=== PATIENT | female | born 1945 | race Caucasian/White ===

== ENCOUNTER → 2017-02-15 | Outpatient (CLI) | payer MEDICARE ==
[~2017-02-15] MED LIST: CLONAZEPAM1 MG PO; COREG3.125 MG PO; FLORASTOR250 MG PO; MOBIC7.5 MG PO; MULTIPLE VITAMI1 T25 PO; OMEPRAZOLE20 M2 PO; PRINIVIL10 MG PO; ULTRAM50 MG PO
== END | disposition home or self-care (01) ==
LOC: CARD 14:40
DX: Z51.11 Encounter for antineoplastic chemotherapy (principal)

== ENCOUNTER → 2017-06-07 | Outpatient (CLI) | payer MEDICARE | END | disposition home or self-care (01) | LOC: CARD 14:47 | DX: Z51.11 Encounter for antineoplastic chemotherapy (principal); I35.8 Other nonrheumatic aortic valve disorders ==

== ENCOUNTER 2017-07-01 13:58 | Emergency (ER) | payer MEDICARE ==
[~2017-07-01] VITALS: Ht 167.6 cm; Wt 65.3 kg
[2017-07-01 14:42] LABS: BASO # 0.1 10*3/uL (0.0-0.1); BASO % 1.1 % (0.0-1.0); EOS # 0.2 10*3/uL (0.0-0.4); EOS % 3.8 % (1.0-4.0); HEMATOCRIT 37.1 % (37.0-47.0); HEMOGLOBIN 12.6 g/dl (12.0-16.0); LYMPH # 1.8 10*3/uL (1.3-4.4); MEAN CELL VOLUME 92.3 fl (81.0-99.0); MEAN CORPUSCULAR HGB 31.3 pg (27.0-31.0); MONO # 0.3 10*3/uL (0.1-1.0); MONO % 5.7 % (3.0-9.0); NEUT # 3.1 10*3/uL (2.3-7.9); PLATELET COUNT AUTOMATED 164 10*3/uL (130-400); RED BLOOD COUNT 4.02 10*6/uL (4.10-5.10); RED CELL DISTRI WIDTH 15.7 % (0-14.5); WHITE BLOOD COUNT 5.6 10*3/uL (4.8-10.8)
[2017-07-01 14:56] LABS: INTERNATIONAL NORM RATIO 1.1 (2.0-3.5)
[2017-07-01 14:59] LABS: ALBUMIN 3.9 gm/dl (3.1-4.5); ALKALINE PHOSPHATASE 89 U/L (45-117); BUN 12 mg/dl (7-24); CHLORIDE 102 mmol/L (98-107); CREATININE 0.69 mg/dL (0.55-1.02); MAGNESIUM 1.6 mg/dL (1.5-2.1); SGOT/AST 43 IU/L (3-35); SGPT/ALT 35 U/L (12-78); SODIUM 133 mmol/L (136-145); TOTAL PROTEIN 8.3 gm/dL (6.4-8.2)
[2017-07-01 15:01] LABS: TROPONIN I < 0.015 ng/ml (<0.045)
== END 2017-07-01 16:01 | disposition home or self-care (01) ==
LOC: ED 13:58
PROVIDERS: Nurse Practitioner Family
DX: F41.9 Anxiety disorder, unspecified (principal); I10 Essential (primary) hypertension; Z79.899 Other long term (current) drug therapy; Z87.891 Personal history of nicotine dependence

== ENCOUNTER → 2017-07-04 | Outpatient (CLI) | payer MEDICARE ==
[~2017-07-04] MED LIST changes: +HYDROCHLOROTH12.5 M2 PO; +POTASSIUM CHLO20 ME3 PO
== END | disposition home or self-care (01) ==
LOC: US 10:00
DX: I10 Essential (primary) hypertension (principal); R94.5 Abnormal results of liver function studies

== ENCOUNTER 2017-07-06 16:03 | Inpatient (IN) | payer MEDICARE ==
[~2017-07-06] VITALS: Ht 168 cm; Wt 65.3 kg
--- NOTE | ~2017-07-06 | ST ---
[place], [place] EXERCISE STRESS TEST REPORT [id number] UNIT #: [id number] ROOM: 503 DOCTOR: ANTONIA CHAVEZ MD BIRTHDATE: [birth year] DOS: 07/07/2017 REFERRING PHYSICIAN: Dr. Lawler. INDICATION: Central chest pain. The patient underwent standard Zohaib protocol stress EKG. The patient's baseline EKG is normal sinus with nonspecific ST-T wave changes. Heart rate was 83 with a blood pressure of 124/70 at baseline. The patient achieved a maximum heart rate of 141 with a blood pressure 138/88. The patient achieved maximum heart rate of 141, which represents 95% of maximum predicted. The patient exercised for a total of 3 minutes on the treadmill. No chest pain, EKG changes were noted. No arrhythmias were noted. Knight Treadmill score ____ 3. SUMMARY OF FINDINGS: 1. No inducible ischemia. No chest pain was noted. 2. Knight Treadmill score of 3 due to low workload, portending an intermediate risk prognosis. 3. Please see separate dictation for perfusion scan results. ANTONIA CHAVEZ MD CM:STRESS:EXERCISE STRESS TEST REPORT 1141 0050 ANTONIA CHAVEZ MD
[~2017-07-06 16:03] MED LIST changes: -HYDROCHLOROTH12.5 M2 PO; -POTASSIUM CHLO20 ME3 PO
[2017-07-06 16:10] VITALS: BP 174/110
[2017-07-06 16:18] VITALS: BP 144/96
[2017-07-06 16:33] LABS: HEMATOCRIT 36.9 % (37.0-47.0); HEMOGLOBIN 12.7 g/dl (12.0-16.0); MEAN CELL VOLUME 92.3 fl (81.0-99.0); MEAN CORPUSCULAR HGB 31.8 pg (27.0-31.0); MEAN CORPUSCULAR HGB CONC 34.4 g/dl (33.0-37.0); MEAN PLATELET VOLUME 9.4 fl (9.6-12.3); PLATELET COUNT AUTOMATED 199 10*3/uL (130-400); RED CELL DISTRI WIDTH 15.6 % (0-14.5); WHITE BLOOD COUNT 7.4 10*3/uL (4.8-10.8)
[2017-07-06 16:44] LABS: ACT PARTIAL THROMBO TIME 25.9 SECONDS (20.8-31.5); INTERNATIONAL NORM RATIO 1.1 (2.0-3.5)
[2017-07-06 16:46] LABS: ALBUMIN 3.8 gm/dl (3.1-4.5); ALKALINE PHOSPHATASE 91 U/L (45-117); BUN 17 mg/dl (7-24); CHLORIDE 100 mmol/L (98-107); CREATININE 0.72 mg/dL (0.55-1.02); MAGNESIUM 1.7 mg/dL (1.5-2.1); POTASSIUM 3.8 mmol/L (3.5-5.1); SGOT/AST 39 IU/L (3-35); SGPT/ALT 31 U/L (12-78); SODIUM 131 mmol/L (136-145); TOTAL PROTEIN 8.6 gm/dL (6.4-8.2)
[2017-07-06 16:47] LABS: LIPASE 279 U/L (73-393); TROPONIN I < 0.015 ng/ml (<0.045)
[2017-07-06 16:57] LABS: ATYPICAL LYMPHS 2 % (0-0); BASOPHILS 1 % (0-1); PLATELET SUFFICIENCY NORMAL (NORMAL); TOTAL CELLS COUNTED 100 #CELLS
--- NOTE | 2017-07-06 17:02 | NUR ---
PT RESTING WITH HER AT THE BEDSIDE, STATES SHE IS FEELING BETTER, WAITING FOR LABS AND X-RAYS. PT REMAINS NSR IN THE 'S.
[2017-07-06] MEDS ORDERED: POTASSIUM CHLO20 ME3 PO (18:28)
--- NOTE | 2017-07-06 18:28 | NUR ---
[facility] 72, admitted to , under the services of LILIANA Donovan DO with a diagnosis of CHEST PAIN. Chief complaint is CHEST PAIN. Patient arrived via bed from ER. Monitor applied. Initial assessment completed. Vital signs taken and recorded. LILIANA DONOVAN DO notified of admission to the unit. Orders received. See assessment for past medical history, medications and allergies. Patient and/or family oriented to unit. [facility] visitation policy reviewed. Clothing/patient valuable form completed. PRANEETH GUERRA
[2017-07-06] MEDS ORDERED: HYDROCHLOROTH12.5 M2 PO (18:29)
[2017-07-06 18:30] VITALS: BP 129/88
--- NOTE | 2017-07-06 19:48 | NUR ---
CONSULTED DR. ESPINOZA AT THIS TIME. LEFT MESSAGE WITH ANSWERING SERVICE. AWAITING CALL BACK.
--- NOTE | 2017-07-06 19:50 | NUR ---
PT. AWAKE, ALERT AND ORIENTED X 3 AT THIS TIME. PT. LAYING IN BED. NO C/O SOB, CP, OR PAIN AT THIS TIME. CALL LIGHT WITHIN REACH, BED IN LOWEST POSITION, WHEELS LOCKED. SEE SHIFT ASSESSMENT.
--- NOTE | 2017-07-06 19:51 | NUR ---
DR. CHAVEZ, IN FOR DR. ESPINOZA, RETURNED MY CALL AT THIS TIME. INSTRUCTED THIS NURSE TO KEEP PT. NPO AFTER MIDNIGHT EXCEPT FOR MEDS.
[2017-07-06 20:00] VITALS: BP 146/88
--- NOTE | 2017-07-06 20:00 | NUR ---
SPOKE WITH DR. FLANNERY TO INFORM THAT [facility]REC WAS COMPLETED.
[2017-07-07] VITALS: BP 119/69
--- NOTE | 2017-07-07 00:49 | NUR ---
PT. STATED FEELINGS OF ANXIOUSNESS AND PAIN IN HER LEFT ARM 01/26. PT. ADM ANTOINE AND CHARISSA. WILL MONITOR FOR EFFECTIVENESS.
--- NOTE | 2017-07-07 01:25 | NUR ---
PT. SLEEPING AT THIS TIME WITHOUT DISTRESS, RESPIRATIONS EASY/NON-LABORED.
[2017-07-07 06:36] LABS: BASO # 0.1 10*3/uL (0.0-0.1); BASO % 1.1 % (0.0-1.0); EOS # 0.3 10*3/uL (0.0-0.4); EOS % 4.7 % (1.0-4.0); HEMATOCRIT 34.5 % (37.0-47.0); HEMOGLOBIN 11.9 g/dl (12.0-16.0); LYMPH # 2.2 10*3/uL (1.3-4.4); MEAN CELL VOLUME 92.2 fl (81.0-99.0); MEAN CORPUSCULAR HGB 31.8 pg (27.0-31.0); MEAN CORPUSCULAR HGB CONC 34.5 g/dl (33.0-37.0); MEAN PLATELET VOLUME 9.5 fl (9.6-12.3); MONO # 0.5 10*3/uL (0.1-1.0); MONO % 8.6 % (3.0-9.0); NEUT # 2.6 10*3/uL (2.3-7.9); NEUT % 46.2 % (47.0-73.0); PLATELET COUNT AUTOMATED 184 10*3/uL (130-400); RED BLOOD COUNT 3.74 10*6/uL (4.10-5.10); RED CELL DISTRI WIDTH 15.7 % (0-14.5); WHITE BLOOD COUNT 5.6 10*3/uL (4.8-10.8)
[2017-07-07 06:56] LABS: ALBUMIN 3.4 gm/dl (3.1-4.5); ALKALINE PHOSPHATASE 74 U/L (45-117); BUN 18 mg/dl (7-24); CHLORIDE 103 mmol/L (98-107); CHOLESTEROL 179 mg/dL (<200); CREATININE 0.63 mg/dL (0.55-1.02); HDL CHOLESTEROL 64 mg/dl (40-60); LDL CHOLESTEROL 99 mg/dL (9-159); MAGNESIUM 1.8 mg/dL (1.5-2.1); PHOSPHOROUS 3.3 mg/dL (2.5-4.9); POTASSIUM 3.8 mmol/L (3.5-5.1); SGOT/AST 37 IU/L (3-35); SGPT/ALT 27 U/L (12-78); SODIUM 135 mmol/L (136-145); TOTAL PROTEIN 7.5 gm/dL (6.4-8.2); TRIGLYCERIDES 81 mg/dl (<150); VLDL CHOLESTEROL 16 mg/dL (6-40)
[2017-07-07 07:03] LABS: VITAMIN D, 25-HYDROXY 31.1 ng/mL (30-100)
[2017-07-07 08:00] VITALS: BP 138/83
--- NOTE | 2017-07-07 08:30 | NUR ---
Inside Barrel Lathe Operator in to talk to patient. Patient states lives at HOME with HER . There are 7 steps in the home. Physician: ABIGAIL GREER [facility]acy: [facility] Home health services: NONE Patient's level of ADLs: INDEPENDENT Patient has working utilities: YES DME: NONE Follow-up physician's appointment after d/c: WILL BE MADE PRIOR TO DC Does patient want to access PORTAL?: Discharge plan HOME. DOMINIQUE BUSH
--- NOTE | 2017-07-07 09:55 | NUR ---
tylenol given for c/o headache. will monitor.
--- NOTE | 2017-07-07 11:00 | NUR ---
TYLENOL EFFECTIVE PER PT.
--- NOTE | 2017-07-07 11:30 | NUR ---
INFORMED CONSENT SIGNED FOR EXERCISE CARDIOLITE STRESS TEST WITH DR CHAVEZ. RESTING EKG NSR WITH A HR OF 83 AND BP OF 124/70. STANDING HR OF 96 AND BP OF 118/70. PT COMPLETED 3 MINUTES OF A KM PROTOCOL WITH COMPLETION OF STAGE I AT 1.7 MPH AND 10% GRADE. REACHED A PEAK HR OF 141 WHICH IS 95% OF PREDICTED MAX WITH A PEAK BP OF 138/88. TEST TERMINATED DUE TO FATIGUE. DENIES CHEST PAIN. EKG SHOWED AN ISOLATED PVC. EXERCISE TOLERANCE FAIR. LAST RECOVERY HR OF 112 WITH A BP OF 120/80. TAKEN TO NUCLEAR IMAGING IN STABLE CONDITION.
[2017-07-07 12:00] VITALS: BP 154/79
[2017-07-07 16:00] VITALS: BP 113/85
--- NOTE | 2017-07-07 18:44 | NUR ---
[facility] Discharge instructions reviewed with patient/family. Patient receptive and verbalizes understanding. Follow-up care arranged. Written instructions given to patient/family. PRANEETH GUERRA
== END 2017-07-07 18:44 | disposition home or self-care (01) | DRG 880 ==
LOC: ED 16:03 → 5E 17:39 → EDHOLD 17:39 → 5E 17:50
PROVIDERS: Emergency Medicine; Internal Medicine Nephrology; ADMIT Internal Medicine
PROC: 4A02XM4 Measurement of Cardiac Total Activity, External Approach (ICD-10-PCS; principal; 2017-07-07)
DX: F41.9 Anxiety disorder, unspecified (principal); D70.9 Neutropenia, unspecified; I34.0 Nonrheumatic mitral (valve) insufficiency; E87.1 Hypo-osmolality and hyponatremia; I10 Essential (primary) hypertension; R07.89 Other chest pain; K21.9 Gastro-esophageal reflux disease without esophagitis; R73.9 Hyperglycemia, unspecified; R00.0 Tachycardia, unspecified; Z79.899 Other long term (current) drug therapy; Z87.81 Personal history of (healed) traumatic fracture; Z87.11 Personal history of peptic ulcer disease; Z90.49 Acquired absence of other specified parts of digestive tract; Z90.11 Acquired absence of right breast and nipple; Z80.3 Family history of malignant neoplasm of breast; Z83.6 Family history of other diseases of the respiratory system; Z85.3 Personal history of malignant neoplasm of breast

== ENCOUNTER → 2017-07-18 | Outpatient (CLI) | payer MEDICARE ==
[~2017-07-18] MED LIST changes: +HYDROCHLOROTH12.5 M2 PO; +POTASSIUM CHLO20 ME3 PO
== END | disposition home or self-care (01) ==
LOC: RAD 09:12
DX: M54.2 Cervicalgia (principal); M47.022 Vertebral artery compression syndromes, cervical region

== ENCOUNTER → 2017-07-21 | Outpatient (CLI) | payer MEDICARE | LOC: CT 02:49 | DX: M47.892 Other spondylosis, cervical region (principal); M48.02 Spinal stenosis, cervical region; M54.12 Radiculopathy, cervical region; G45.2 Multiple and bilateral precerebral artery syndromes ==

== ENCOUNTER 2017-11-01 09:23 | Emergency (ER) | payer MEDICARE ==
[~2017-11-01] VITALS: Ht 172.7 cm; Wt 63.5 kg
[2017-11-01 09:45] LABS: BASO # 0.1 10*3/uL (0.0-0.1); BASO % 0.8 % (0.0-1.0); EOS # 0.2 10*3/uL (0.0-0.4); EOS % 3.5 % (1.0-4.0); HEMATOCRIT 35.2 % (37.0-47.0); HEMOGLOBIN 12.1 g/dl (12.0-16.0); LYMPH # 1.8 10*3/uL (1.3-4.4); LYMPH % 29.2 % (27.0-41.0); MEAN CELL VOLUME 91.9 fl (81.0-99.0); MEAN CORPUSCULAR HGB 31.6 pg (27.0-31.0); MEAN CORPUSCULAR HGB CONC 34.4 g/dl (33.0-37.0); MEAN PLATELET VOLUME 9.2 fl (9.6-12.3); MONO # 0.4 10*3/uL (0.1-1.0); MONO % 6.5 % (3.0-9.0); NEUT # 3.7 10*3/uL (2.3-7.9); NEUT % 59.5 % (47.0-73.0); PLATELET COUNT AUTOMATED 259 10*3/uL (130-400); RED BLOOD COUNT 3.83 10*6/uL (4.10-5.10); RED CELL DISTRI WIDTH 14.6 % (0-14.5); WHITE BLOOD COUNT 6.2 10*3/uL (4.8-10.8)
[2017-11-01 09:54] LABS: ACT PARTIAL THROMBO TIME 24.8 SECONDS (20.8-31.5); INTERNATIONAL NORM RATIO 1.1 (2.0-3.5)
[2017-11-01 10:01] LABS: ALBUMIN 3.7 gm/dl (3.1-4.5); ALKALINE PHOSPHATASE 67 U/L (45-117); BUN 14 mg/dl (7-24); CHLORIDE 108 mmol/L (98-107); CREATININE 0.87 mg/dL (0.55-1.02); POTASSIUM 3.4 mmol/L (3.5-5.1); SGOT/AST 35 IU/L (3-35); SGPT/ALT 32 U/L (12-78); SODIUM 140 mmol/L (136-145); TOTAL PROTEIN 7.6 gm/dL (6.4-8.2)
[2017-11-01 10:02] LABS: TROPONIN I < 0.015 ng/ml (<0.045)
[2017-11-01] MEDS ORDERED: PREDNISONE20 M1 PO (11:27)
[2017-11-01] MEDS ORDERED: ALBUTEROL2.5 MG/0.5 INH (11:27)
[2017-11-01] MEDS ORDERED: VIBRAMYCIN100 MG PO (11:27)
== END 2017-11-01 11:53 | disposition home or self-care (01) ==
LOC: ED 09:23
PROVIDERS: Emergency Medicine
DX: J40 Bronchitis, not specified as acute or chronic (principal); I10 Essential (primary) hypertension; F17.210 Nicotine dependence, cigarettes, uncomplicated; Z79.899 Other long term (current) drug therapy

== ENCOUNTER → 2018-05-23 | Outpatient (CLI) | payer MEDICARE ==
[~2018-05-23] MED LIST changes: +ALBUTEROL2.5 MG/0.5 INH; +PREDNISONE20 M1 PO; +VIBRAMYCIN100 MG PO
== END | disposition home or self-care (01) ==
LOC: CT 08:33
DX: C50.911 Malignant neoplasm of unspecified site of right female breast (principal); Z17.1 Estrogen receptor negative status [ER-]; Z85.3 Personal history of malignant neoplasm of breast

== ENCOUNTER → 2018-06-15 | Outpatient (CLI) | payer MEDICARE | END | disposition home or self-care (01) | LOC: CARD 13:38 | DX: C50.911 Malignant neoplasm of unspecified site of right female breast (principal); I10 Essential (primary) hypertension; Z17.1 Estrogen receptor negative status [ER-]; R06.00 Dyspnea, unspecified ==

== ENCOUNTER → 2019-01-23 | Outpatient (CLI) | payer MEDICARE ==
[~2019-01-23] MED LIST changes: +CIPRO500 MG PO; +FLAGYL500 MG PO
== END | disposition home or self-care (01) ==
LOC: US 09:57
DX: Z13.820 Encounter for screening for osteoporosis (principal); Z13.6 Encounter for screening for cardiovascular disorders; I10 Essential (primary) hypertension; E78.5 Hyperlipidemia, unspecified; Z78.0 Asymptomatic menopausal state

== ENCOUNTER 2019-03-24 14:08 | Emergency (ER) | payer MEDICARE ==
[~2019-03-24] VITALS: Ht 172.7 cm; Wt 70.8 kg
[~2019-03-24 14:08] MED LIST changes: -CIPRO500 MG PO; -FLAGYL500 MG PO
[2019-03-24 14:52] LABS: BASO # 0.1 10*3/uL (0.0-0.1); EOS # 0.3 10*3/uL (0.0-0.4); EOS % 3.7 % (1.0-4.0); HEMATOCRIT 40.6 % (37.0-47.0); HEMOGLOBIN 13.7 g/dl (12.0-16.0); LYMPH # 1.4 10*3/uL (1.3-4.4); LYMPH % 19.3 % (27.0-41.0); MEAN CELL VOLUME 95.1 fl (81.0-99.0); MEAN CORPUSCULAR HGB 32.1 pg (27.0-31.0); MEAN CORPUSCULAR HGB CONC 33.7 g/dl (33.0-37.0); MONO # 0.5 10*3/uL (0.1-1.0); MONO % 7.7 % (3.0-9.0); NEUT # 4.7 10*3/uL (2.3-7.9); NEUT % 67.9 % (47.0-73.0); PLATELET COUNT AUTOMATED 318 10*3/uL (130-400); RED BLOOD COUNT 4.27 10*6/uL (4.10-5.10); RED CELL DISTRI WIDTH 13.9 % (0-14.5)
[2019-03-24 15:05] LABS: ALBUMIN 3.8 gm/dl (3.1-4.5); ALKALINE PHOSPHATASE 77 U/L (45-117); BUN 13 mg/dl (7-24); CHLORIDE 101 mmol/L (98-107); CREATININE 0.74 mg/dL (0.55-1.02); LIPASE 91 U/L (73-393); POTASSIUM 4.2 mmol/L (3.5-5.1); SGOT/AST 21 IU/L (3-35); SGPT/ALT 20 U/L (12-78); SODIUM 135 mmol/L (136-145); TOTAL PROTEIN 7.9 gm/dL (6.4-8.2)
[2019-03-24 16:50] LABS: BILIRUBIN NEGATIVE (NEGATIVE); BLOOD NEGATIVE (NEGATIVE); CLARITY CLEAR (CLEAR); COLOR YELLOW (YELLOW); GLUCOSE NEGATIVE (NEGATIVE); KETONE NEGATIVE (NEGATIVE); LEUKO ESTERASE TRACE (NEGATIVE); NITRITE NEGATIVE (NEGATIVE); PH 5.5 (5.0-9.0); SPECIFIC GRAVITY 1.015 (1.005-1.030); UROBILINOGEN 0.2 E.U./dl (0.2-1.0)
[2019-03-24 16:55] LABS: RBC 0-2 rbc/hpf (0-2)
[2019-03-24 16:56] LABS: BACTERIA 1+
[2019-03-24] MEDS ORDERED: CIPRO500 MG PO (19:13)
[2019-03-24] MEDS ORDERED: FLAGYL500 MG PO (19:13)
== END 2019-03-24 19:26 | disposition home or self-care (01) ==
LOC: ED 14:08
PROVIDERS: Physician Assistant
DX: K57.32 Diverticulitis of large intestine without perforation or abscess without bleeding (principal); Z87.891 Personal history of nicotine dependence; Z79.899 Other long term (current) drug therapy; Z85.3 Personal history of malignant neoplasm of breast

== ENCOUNTER → 2019-05-14 | Outpatient (CLI) | payer MEDICARE ==
[~2019-05-14] MED LIST changes: +CIPRO500 MG PO; +FLAGYL500 MG PO
== END | disposition home or self-care (01) ==
LOC: CT 10:57
DX: J43.9 Emphysema, unspecified (principal); J84.9 Interstitial pulmonary disease, unspecified; I25.10 Atherosclerotic heart disease of native coronary artery without angina pectoris

== ENCOUNTER → 2019-05-16 | Outpatient (CLI) | payer MEDICARE ==
[2019-05-16 10:38] LABS: CREATININE 0.78 mg/dL (0.55-1.02)
== END | disposition home or self-care (01) ==
LOC: LAB 09:35
PROVIDERS: Surgery
DX: K57.92 Diverticulitis of intestine, part unspecified, without perforation or abscess without bleeding (principal)

== ENCOUNTER → 2019-05-17 | Outpatient (CLI) | payer MEDICARE | END | disposition home or self-care (01) | LOC: CT 00:55 | DX: K76.0 Fatty (change of) liver, not elsewhere classified (principal); K76.89 Other specified diseases of liver; K80.20 Calculus of gallbladder without cholecystitis without obstruction; Z90.710 Acquired absence of both cervix and uterus ==

== ENCOUNTER → 2019-05-22 | Day surgery (SDC) | payer MEDICARE ==
[~2019-05-22] VITALS: Ht 167.6 cm; Wt 72.1 kg
--- NOTE | ~2019-05-22 | PROC NOTE ---
[place], [place] PROCEDURE NOTE [facility] [id number] UNIT #: [id number] ROOM: DOCTOR: KOSTAS MORENO MD,SVITLANA BIRTHDATE: [birth year] DOS: 05/22/2019 PREOPERATIVE DIAGNOSIS: Chronic cough with tree-in-bud nodule in the right lower lobe. POSTOPERATIVE DIAGNOSES: Chronic cough with tree-in-bud nodule in the right lower lobe. PROCEDURE DESCRIPTION: Informed consent obtained from the patient. The patient brought to the OR and placed in supine position. Conscious sedation administered by the Anesthesia Department. After that bronchoscope advanced to laryngeal area. Epiglottis and vocal cords were seen. Vocal cords moving symmetrically with movements. Bronchoscope ____ tracheal lumen. Tracheal lumen noted small amount of secretions, which was suctioned out into kevin level. Right upper, right middle, right lower, left upper, lingular lower bronchi were all examined. Small amount of mucus secretion present in endobronchial subsegments bilaterally, which was suctioned out with normal saline wash. BAL specimen was also obtained for the patient of the right lower lobe. All the washings and the BAL specimen collected together, sent to the laboratory for all the cultures. Procedure well tolerated by the patient without complication. Postoperative findings will be discussed with the patient's family members. SVITLANA KENYON MD CM:PROCNOTE:PROCEDURE NOTE 191 SVITLANA MORENO MD
[2019-05-22 08:00] VITALS: BP 169/109
[2019-05-22 09:05] VITALS: BP 172/94
[2019-05-22 09:17] VITALS: BP 155/87
[2019-05-22 09:34] VITALS: BP 149/93
[2019-05-22 11:14] LABS: BF LYMPHOCYTES 6 %; BF MACROPHAGES 2 %; BF NEUTROPHILS 92 %
[2019-05-23 17:58] LABS: ACID FAST SPEC PROCESSING Concentration (.)
== END | disposition home or self-care (01) ==
LOC: SDC 05-18 14:45
PROVIDERS: Internal Medicine Critical Care Medicine
DX: R91.8 Other nonspecific abnormal finding of lung field (principal); I10 Essential (primary) hypertension; K57.90 Diverticulosis of intestine, part unspecified, without perforation or abscess without bleeding; F41.9 Anxiety disorder, unspecified; F32.9 Major depressive disorder, single episode, unspecified; R05 Cough; Z88.1 Allergy status to other antibiotic agents; Z79.84 Long term (current) use of oral hypoglycemic drugs; Z79.899 Other long term (current) drug therapy; Z98.890 Other specified postprocedural states; Z80.3 Family history of malignant neoplasm of breast; Z82.5 Family history of asthma and other chronic lower respiratory diseases; Z85.3 Personal history of malignant neoplasm of breast

== ENCOUNTER → 2019-06-14 | Outpatient (CLI) | payer MEDICARE ==
[~2019-06-14] MED LIST changes: +AMLODIPINE BESYL5 MG PO; +CARVEDILOL3.125 MG PO; +CRESTOR5 MG PO; +ETHAMBUTOL HCL400 MG PO; +LISINOPRIL20 MG PO; +LOMOTIL 2.5-0.1 EACH PO; +NORVASC10 MG PO; +RIFADIN300 MG PO; +ZITHROMAX500 MG PO
[2019-06-14 13:54] LABS: BASO # 0.1 10*3/uL (0.0-0.1); BASO % 1.6 % (0.0-1.0); EOS # 0.3 10*3/uL (0.0-0.4); EOS % 4.8 % (1.0-4.0); HEMOGLOBIN 13.1 g/dl (12.0-16.0); LYMPH # 1.2 10*3/uL (1.3-4.4); LYMPH % 21.9 % (27.0-41.0); MEAN CELL VOLUME 96.3 fl (81.0-99.0); MEAN CORPUSCULAR HGB 32.3 pg (27.0-31.0); MEAN CORPUSCULAR HGB CONC 33.6 g/dl (33.0-37.0); MEAN PLATELET VOLUME 8.8 fl (9.6-12.3); MONO # 0.5 10*3/uL (0.1-1.0); MONO % 8.4 % (3.0-9.0); NEUT # 3.5 10*3/uL (2.3-7.9); NEUT % 62.9 % (47.0-73.0); PLATELET COUNT AUTOMATED 312 10*3/uL (130-400); RED BLOOD COUNT 4.05 10*6/uL (4.10-5.10); WHITE BLOOD COUNT 5.6 10*3/uL (4.8-10.8)
[2019-06-14 14:13] LABS: ALBUMIN 3.7 gm/dl (3.1-4.5); ALKALINE PHOSPHATASE 101 U/L (45-117); BILIRUBIN, DIRECT < 0.1 mg/dL (0.0-0.2); SGOT/AST 42 IU/L (3-35); SGPT/ALT 45 U/L (12-78); TOTAL PROTEIN 7.6 gm/dL (6.4-8.2)
== END | disposition home or self-care (01) ==
LOC: LAB 13:36
PROVIDERS: Internal Medicine Critical Care Medicine
DX: Z79.899 Other long term (current) drug therapy (principal)

== ENCOUNTER 2019-06-23 13:34 | Emergency (ER) | payer MEDICARE ==
[~2019-06-23] VITALS: Ht 167.6 cm; Wt 72.6 kg
--- NOTE | ~2019-06-23 | EKG ---
[place], [place] ELECTROCARDIOGRAM REPORT NAME: KALA GONG UNIT #: [id number] ROOM: DOCTOR: EPIPHANY DRAFT REPORT BIRTHDATE: [birth year] [facility] Test Date: 2019-06-23 Test Time: 14:11:55 Pat Name: KALA GONG Department: Room: Gender: F Media Analyst: : 1945 Requested By: ROSE MARY MORALEZ Order Number: [id number] Reading MD: Eduardo Richardson MD Measurements Intervals [place] Rate: 107 P: 65 IN: 172 QRS: 45 QRSD: 83 T: 37 QT: 336 QTc: 449 Interpretive Statements Sinus tachycardia Electronically Signed On 06-25-2019 10:02:03 PDT by Eduardo Richardson MD CM:EKGRPT:ELECTROCARDIOGRAM REPORT 1411 1002 ROSE MARY MORALEZ EPIPHANY DRAFT REPORT ROSE MARY MORALEZ
[~2019-06-23 13:34] MED LIST changes: -AMLODIPINE BESYL5 MG PO; -CARVEDILOL3.125 MG PO; -CRESTOR5 MG PO; -ETHAMBUTOL HCL400 MG PO; -LISINOPRIL20 MG PO; -LOMOTIL 2.5-0.1 EACH PO; -NORVASC10 MG PO; -RIFADIN300 MG PO; -ZITHROMAX500 MG PO
[2019-06-23 14:16] LABS: BILIRUBIN NEGATIVE (NEGATIVE); BLOOD TRACE-INTACT (NEGATIVE); CLARITY CLEAR (CLEAR); COLOR YELLOW (YELLOW); GLUCOSE NEGATIVE (NEGATIVE); KETONE NEGATIVE (NEGATIVE); LEUKO ESTERASE NEGATIVE (NEGATIVE); NITRITE NEGATIVE (NEGATIVE); SPECIFIC GRAVITY <= 1.005 (1.005-1.030); UROBILINOGEN 0.2 E.U./dl (0.2-1.0)
[2019-06-23 14:23] LABS: BACTERIA TRACE; EPITHELIAL CELLS 0-2; RBC 0-2 rbc/hpf (0-2); WBC 0-2 wbc/hpf (0-5)
[2019-06-23 14:23] LABS: BASO # 0.1 10*3/uL (0.0-0.1); BASO % 1.3 % (0.0-1.0); EOS # 0.2 10*3/uL (0.0-0.4); EOS % 2.5 % (1.0-4.0); HEMATOCRIT 40.1 % (37.0-47.0); HEMOGLOBIN 13.5 g/dl (12.0-16.0); LYMPH # 1.2 10*3/uL (1.3-4.4); MEAN CELL VOLUME 94.6 fl (81.0-99.0); MEAN CORPUSCULAR HGB 31.8 pg (27.0-31.0); MEAN CORPUSCULAR HGB CONC 33.7 g/dl (33.0-37.0); MEAN PLATELET VOLUME 8.7 fl (9.6-12.3); MONO # 0.4 10*3/uL (0.1-1.0); MONO % 6.6 % (3.0-9.0); NEUT # 4.5 10*3/uL (2.3-7.9); NEUT % 70.1 % (47.0-73.0); PLATELET COUNT AUTOMATED 294 10*3/uL (130-400); RED BLOOD COUNT 4.24 10*6/uL (4.10-5.10); RED CELL DISTRI WIDTH 13.5 % (0-14.5); WHITE BLOOD COUNT 6.4 10*3/uL (4.8-10.8)
[2019-06-23 14:40] LABS: ALKALINE PHOSPHATASE 85 U/L (45-117); BUN 11 mg/dl (7-24); CHLORIDE 100 mmol/L (98-107); CREATININE 0.61 mg/dL (0.55-1.02); POTASSIUM 3.9 mmol/L (3.5-5.1); SGOT/AST 29 IU/L (3-35); SGPT/ALT 30 U/L (12-78); SODIUM 133 mmol/L (136-145); TOTAL PROTEIN 8.2 gm/dL (6.4-8.2)
[2019-06-23 14:43] LABS: TROPONIN I < 0.015 ng/ml (<0.045)
[2019-06-24] MEDS ORDERED: AMLODIPINE BESYL5 MG PO (09:41)
== END 2019-06-23 17:00 | disposition home or self-care (01) ==
LOC: ED 13:34
PROVIDERS: Nurse Practitioner
DX: I10 Essential (primary) hypertension (principal); Z88.1 Allergy status to other antibiotic agents; Z79.899 Other long term (current) drug therapy; Z90.49 Acquired absence of other specified parts of digestive tract; Z87.891 Personal history of nicotine dependence

== ENCOUNTER 2019-06-24 09:24 | Emergency (ER) | payer MEDICARE ==
[~2019-06-24] VITALS: Ht 167.6 cm; Wt 72.6 kg
[2019-06-24] MEDS ORDERED: AMLODIPINE BESYL5 MG PO (09:41)
== END 2019-06-24 10:52 | disposition home or self-care (01) ==
LOC: ED 09:24
DX: I10 Essential (primary) hypertension (principal); Z88.1 Allergy status to other antibiotic agents; Z79.899 Other long term (current) drug therapy; Z90.49 Acquired absence of other specified parts of digestive tract; Z87.891 Personal history of nicotine dependence

== ENCOUNTER → 2019-06-26 | Outpatient (CLI) | payer MEDICARE ==
[~2019-06-26] MED LIST changes: +AMLODIPINE BESYL5 MG PO; +CARVEDILOL3.125 MG PO; +CRESTOR5 MG PO; +ETHAMBUTOL HCL400 MG PO; +LISINOPRIL20 MG PO; +LOMOTIL 2.5-0.1 EACH PO; +NORVASC10 MG PO; +RIFADIN300 MG PO; +ZITHROMAX500 MG PO
== END | disposition home or self-care (01) ==
LOC: CARD 07:49
DX: I34.0 Nonrheumatic mitral (valve) insufficiency (principal); R00.0 Tachycardia, unspecified; I10 Essential (primary) hypertension; Z79.899 Other long term (current) drug therapy

== ENCOUNTER → 2019-07-12 | Outpatient (CLI) | payer MEDICARE ==
[2019-07-12 14:13] LABS: BASO # 0.1 10*3/uL (0.0-0.1); EOS # 0.4 10*3/uL (0.0-0.4); EOS % 6.3 % (1.0-4.0); HEMATOCRIT 40.9 % (37.0-47.0); HEMOGLOBIN 13.3 g/dl (12.0-16.0); LYMPH # 1.4 10*3/uL (1.3-4.4); LYMPH % 23.6 % (27.0-41.0); MEAN CELL VOLUME 94.9 fl (81.0-99.0); MEAN CORPUSCULAR HGB 30.9 pg (27.0-31.0); MEAN CORPUSCULAR HGB CONC 32.5 g/dl (33.0-37.0); MEAN PLATELET VOLUME 9.4 fl (9.6-12.3); MONO # 0.5 10*3/uL (0.1-1.0); MONO % 7.8 % (3.0-9.0); NEUT # 3.6 10*3/uL (2.3-7.9); NEUT % 61.1 % (47.0-73.0); PLATELET COUNT AUTOMATED 266 10*3/uL (130-400); RED BLOOD COUNT 4.31 10*6/uL (4.10-5.10); RED CELL DISTRI WIDTH 13.5 % (0-14.5); WHITE BLOOD COUNT 5.9 10*3/uL (4.8-10.8)
[2019-07-12 14:35] LABS: ALBUMIN 3.9 gm/dl (3.1-4.5); ALKALINE PHOSPHATASE 75 U/L (45-117); BILIRUBIN, DIRECT < 0.1 mg/dL (0.0-0.2); SGOT/AST 36 IU/L (3-35); SGPT/ALT 50 U/L (12-78)
== END | disposition home or self-care (01) ==
LOC: LAB 13:24
PROVIDERS: Internal Medicine Critical Care Medicine
DX: Z79.899 Other long term (current) drug therapy (principal)

== ENCOUNTER 2019-07-26 09:00 | Inpatient (IN) | payer MEDICARE ==
[~2019-07-26] VITALS: Ht 167.6 cm; Wt 68.7 kg
--- NOTE | ~2019-07-26 | EKG ---
[place], [place] ELECTROCARDIOGRAM REPORT NAME: KALA GONG UNIT #: [id number] ROOM: 403 DOCTOR: LEÓN DRAFT REPORT BIRTHDATE: [birth year] [facility] Test Date: 2019-07-26 Test Time: 11:48:04 Pat Name: KALA GONG Department: Room: 403 1 Gender: F Log Cut Off Sawyer: : 1945 Requested By: SUKI FLORES Order Number: [id number] Reading MD: Haroon Camilo MD Measurements Intervals [place] Rate: 100 P: -57 IA: 136 QRS: 44 QRSD: 88 T: 40 QT: 360 QTc: 465 Interpretive Statements Sinus or ectopic atrial tachycardia Compared to ECG 06/23/2019 14:11:55 Sinus tachycardia no longer present Electronically Signed On 07-30-2019 10:09:58 PST by Haroon Camilo MD CM:EKGRPT:ELECTROCARDIOGRAM REPORT 1148 1009 SUKI FLORES EPIPHANY DRAFT REPORT SUKI FLORES
--- NOTE | ~2019-07-26 | EKG ---
[place], [place] ELECTROCARDIOGRAM REPORT NAME: KALA GONG UNIT #: [id number] ROOM: 403 DOCTOR: LEÓN DRAFT REPORT BIRTHDATE: [birth year] [facility] Test Date: 2019-07-26 Test Time: 09:26:12 Pat Name: KALA GONG Department: Room: 403 Gender: F Cheese Cooker: : 1945 Requested By: SHAVON MCRAE Order Number: [id number] Reading MD: Haroon Camilo MD Measurements Intervals [place] Rate: 97 P: -60 PA: 185 QRS: 21 QRSD: 90 T: 34 QT: 357 QTc: 454 Interpretive Statements Sinus rhythm Compared to ECG 06/23/2019 14:11:55 sinus rhythm now present Sinus tachycardia no longer present Electronically Signed On 07-30-2019 10:09:47 PST by Haroon Camilo MD CM:EKGRPT:ELECTROCARDIOGRAM REPORT 1009 SHAVON TRAORE DRAFT REPORT SHAVON MCRAE MD
--- NOTE | ~2019-07-26 | CON ---
[place], [place] REPORT OF CONSULTATION NAME: KALA GONG [facility] #: [id number] UNIT #: [id number] ROOM: 403 DOCTOR: KOSTAS MORENO MDSVITLANA BIRTHDATE: [birth year] DOS: 07/27/2019 PULMONARY CONSULTATION, EVALUATION, AND MANAGEMENT CONSULTATION REQUESTED BY: Hospitalist services. REASON FOR CONSULTATION: For assessment of the respiratory disease. 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 The patient has been noted significant improvement in the respiratory status with marked improvement of coughing and shortness of breath. There was one major symptom before the treatment started. She had a bronchoscopy that confirmed the diagnosis. She has been admitted to the hospital, was not feeling well with mild cough. The patient stated that she has episodes of vomiting as well and complains of fever and chills at home prior to admission to the hospital. She denies symptoms of headache or diplopia. Denies symptoms of hemoptysis. Denies symptoms of acute shortness of breath at this time with significant cough this morning of assessment. REVIEW OF SYSTEMS: CONSTITUTIONAL: Fatigue and tiredness noted without any symptoms of fever or chills. EYES: Denies any burning, redness, or tenderness. GASTROINTESTINAL SYMPTOMS: Denies symptoms of dysphagia, nausea, vomiting, diarrhea, abdominal pain, hematemesis, melena, or hematochezia. SKIN: Denies abnormal lesions or rashes. CENTRAL NERVOUS SYSTEM: Denies diplopia or syncopal episodes. Remaining systems were reviewed. They were noted all negative. PAST MEDICAL HISTORY: 1. The patient was known with history of Mycobacterium avium complex pulmonary infection, treated currently with Zithromax, ethambutol and rifampin. 2. History of essential hypertension. 3. Moderate obesity. 4. History of right breast cancer treated with mastectomy and chemotherapy in 2017. 5. Gastroesophageal reflux. 6. Imza-yo-tekzkwyc obesity. 7. Hypercholesterolemia. SOCIAL HISTORY: The patient is , has 2 children, and lives at home. Denies any alcohol or illicit drug use. Tobacco use noted from age of [age] years old, half a pack of cigarettes per day, discontinued in 1984. PAST SURGICAL HISTORY: 1. Appendectomy. 2. Mastectomy in 2017 and then later on chemotherapy for the management of [place], [place] REPORT OF CONSULTATION [facility]: [id number] UNIT #: [id number] ROOM: 403 DOCTOR: KOSTAS MORENO MD,SVITLANA BIRTHDATE: [birth year] breast cancer. 3. Right hip replacement in 2014. 4. Fiberoptic bronchoscopy in 05/22/2019. FAMILY HISTORY: Father at age 65-year-old with complication of COPD. Mother at age 42 years of complications of breast cancer. CURRENT MEDICATIONS: Which were administered on this hospitalization were noted as use of Lipitor, ethambutol, rifampin 3 times a week, hydrochlorothiazide, Lovenox for DVT prophylaxis, amlodipine 10 mg daily, Zithromax 500 mg Tuesday, Tuesday, and Tuesday, omeprazole, Coreg, lisinopril, temazepam, potassium chloride, and some other meds. DRUG ALLERGIES: ALLERGIES TO AMOXICILLIN CAUSING DIARRHEA. PHYSICAL EXAMINATION: GENERAL: A 74-year-old white female currently noted to be awake, alert, without any distress. Height of 5 feet 6 inches, weight of 151 pounds, BMI 24. VITAL SIGNS: Normal temperature, respiratory rate 20-18, heart rate 92-100, blood pressure 160/90 - 154/98. Pulse oxygen saturation at rest on room air is 96% saturation. HEENT: Examination shows head was atraumatic. Eyes nonicterus. NECK: Supple. CARDIOVASCULAR: S1, S2 audible. LUNGS: Noted clear to auscultation bilaterally. ABDOMEN: Soft, nontender. Bowel sounds present. EXTREMITIES: No acute edema, clubbing or cyanosis. MUSCULOSKELETAL: Without acute deformities. CENTRAL NERVOUS SYSTEM: Intact. LABORATORY DATA: CBC on 07/26/2019 on admission, normal WBC count, hemoglobin and hematocrit and platelet count normal. Lactic acid noted 1.4 yesterday on admission. CMP on admission, normal BUN and creatinine. Glucose 182. Potassium noted severely decreased 2.7. Influenza A and B, nasal washing antigen negative. Rapid RSV virus testing was also noted as negative. CBC that was done this morning, normal WBC count, hemoglobin 11.7, platelet count normal. CMP at this point, normal BUN and creatinine. LFTs remains normal. Potassium 3.1 and sodium 134. IMPRESSION: Hypokalemia resulting in weakness and fatigue, currently treated for Mycobacterium avium complex infection noted stable and favorable improvement continue. The chest x-ray that was done on admission noted without any pulmonary nodules or other opacities. Other medical problems noted in the history. PLAN OF TREATMENT: Continue the patient's antibiotic 3 times a week, supplement the potassium most likely related to hydrochlorothiazide use. Consider discontinuing hydrochlorothiazide and replace it with different diuretics. Other therapy, plan of management additional treatment changes will be recommended or change based on progression of the illness. Discharge planning [place], [place] REPORT OF CONSULTATION NAME: KALA GONG UNIT #: [id number] ROOM: 403 DOCTOR: KOSTAS MORENO MD,SVITLANA BIRTHDATE: [birth year] could be started based on the primary care physician assessment. She will be followed up in physician office as previously scheduled for pulmonary disease. SVITLANA KENYON MD CM:CONSTR:REPORT OF CONSULTATION 1407 07/27/19 1913 interface
[~2019-07-26 09:00] MED LIST changes: -CARVEDILOL3.125 MG PO; -CRESTOR5 MG PO; -ETHAMBUTOL HCL400 MG PO; -LISINOPRIL20 MG PO; -LOMOTIL 2.5-0.1 EACH PO; -NORVASC10 MG PO; -RIFADIN300 MG PO; -ZITHROMAX500 MG PO
[2019-07-26 09:03] VITALS: BP 147/85
[2019-07-26 09:30] LABS: BASO % 0.5 % (0.0-1.0); EOS # 0.1 10*3/uL (0.0-0.4); EOS % 2.6 % (1.0-4.0); HEMATOCRIT 36.6 % (37.0-47.0); HEMOGLOBIN 12.4 g/dl (12.0-16.0); LYMPH # 0.6 10*3/uL (1.3-4.4); LYMPH % 11.7 % (27.0-41.0); MEAN CELL VOLUME 90.4 fl (81.0-99.0); MEAN CORPUSCULAR HGB 30.6 pg (27.0-31.0); MEAN CORPUSCULAR HGB CONC 33.9 g/dl (33.0-37.0); MEAN PLATELET VOLUME 9.3 fl (9.6-12.3); MONO # 0.2 10*3/uL (0.1-1.0); NEUT # 4.4 10*3/uL (2.3-7.9); NEUT % 80.8 % (47.0-73.0); PLATELET COUNT AUTOMATED 294 10*3/uL (130-400); RED BLOOD COUNT 4.05 10*6/uL (4.10-5.10); RED CELL DISTRI WIDTH 13.4 % (0-14.5); WHITE BLOOD COUNT 5.5 10*3/uL (4.8-10.8)
[2019-07-26 09:46] LABS: ALBUMIN 2.9 gm/dl (3.1-4.5); ALKALINE PHOSPHATASE 197 U/L (45-117); BUN 7 mg/dl (7-24); CHLORIDE 98 mmol/L (98-107); CREATININE 0.74 mg/dL (0.55-1.02); POTASSIUM 2.7 mmol/L (3.5-5.1); SGOT/AST 35 IU/L (3-35); SGPT/ALT 53 U/L (12-78); SODIUM 133 mmol/L (136-145); TOTAL PROTEIN 7.7 gm/dL (6.4-8.2)
[2019-07-26 09:47] LABS: TROPONIN I < 0.015 ng/ml (<0.045)
[2019-07-26 10:38] VITALS: BP 167/99
--- NOTE | 2019-07-26 10:38 | NUR ---
PT REQUESTING SOMETHING FOR HEADACHE DR MCRAE NOTIFIED
--- NOTE | 2019-07-26 11:20 | NUR ---
A 74, admitted to , under the services of MICHELLE Dailey DO with a diagnosis of hyponatremia hypkalemia,. Chief complaint is sob and cough for the past 3-4 days. Patient arrived via stretcher from ER. Monitor applied. Initial assessment completed. Vital signs taken and recorded. See assessment for past medical history, medications and allergies. Patient and/or family oriented to unit. [facility]. ANJEL BURDICK
--- NOTE | 2019-07-26 11:25 | NUR ---
Called lab regarding if they need two samples for rapid flu and rsv testing or could just one be sent in the same tube. Lab states that they need two as they are in different collection containers. States RSV is in a purple capped collection container.
[2019-07-26] MEDS ORDERED: NORVASC10 MG PO (11:31)
[2019-07-26] MEDS ORDERED: CARVEDILOL3.125 MG PO (11:32)
[2019-07-26] MEDS ORDERED: CRESTOR5 MG PO (11:34)
[2019-07-26] MEDS ORDERED: ZITHROMAX500 MG PO (11:35)
[2019-07-26] MEDS ORDERED: RIFADIN300 MG PO (11:36)
[2019-07-26] MEDS ORDERED: ETHAMBUTOL HCL400 MG PO (11:37)
[2019-07-26 12:00] VITALS: BP 164/88
--- NOTE | 2019-07-26 12:00 | NUR ---
RSV and Rapid flu obtained and sent to lab.
--- NOTE | 2019-07-26 15:12 | NUR ---
DR. Kelley notified that med rec is updated.
--- NOTE | 2019-07-26 15:39 | NUR ---
Dr. Fischer notified of consult. States he will see pt in am.
[2019-07-26 16:00] VITALS: BP 140/104
--- NOTE | 2019-07-26 17:09 | NUR ---
BP was 144/102. Notified Dr. Kelley. States to recheck in a couple hours.
[2019-07-26 18:21] LABS: BILIRUBIN NEGATIVE (NEGATIVE); BLOOD TRACE-INTACT (NEGATIVE); CLARITY CLEAR (CLEAR); COLOR YELLOW (YELLOW); GLUCOSE NEGATIVE (NEGATIVE); KETONE NEGATIVE (NEGATIVE); LEUKO ESTERASE NEGATIVE (NEGATIVE); NITRITE NEGATIVE (NEGATIVE); SPECIFIC GRAVITY 1.015 (1.005-1.030); UROBILINOGEN 0.2 E.U./dl (0.2-1.0)
[2019-07-26 18:38] LABS: RBC 0-2 rbc/hpf (0-2)
[2019-07-26 20:00] VITALS: BP 160/98
--- NOTE | 2019-07-26 20:00 | NUR ---
24 HOUR CHART CHECK COMPLETE.
--- NOTE | 2019-07-26 20:03 | NUR ---
PRN NORCO ADMINISTERED AT THIS TIME FOR PT C/O H/A RATED A 5/10 ON THE PAIN SCALE. WILL CONTINUE TO MONITOR AND REASSESS. BP 160/98 WILL NOTIFY
--- NOTE | 2019-07-26 20:19 | NUR ---
DR GUALLPA NOTIFIED OF BP OF 160/98 AND PT C/O HEADACHE. STATES TO RECHECK IN A HOUR AND NOTIFY HER OF THE RESULT. NO NEW ORDERS AT THIS TIME.
[2019-07-26 21:30] VITALS: BP 146/94
--- NOTE | 2019-07-26 21:40 | NUR ---
SPOKE WITH DR GUALLPA REGARDING PT RECHECK BP OF 146/94. DR AWARE THAT PT STATES THAT HER "HEADACHE FINALLY DISAPPEARED AND SHE IS FEELING MUCH BETTER". NO NEW ORDERS. WILL CONTINUE TO MONITOR.
[2019-07-27] VITALS: BP 163/95
[2019-07-27 03:51] VITALS: BP 154/98
--- NOTE | 2019-07-27 03:53 | NUR ---
PRN NORCO ADMINISTERED AT THIS TIME FOR PT C/O HEADACHE RATED AN 8/10. THE PTS BLOOD PRESSURE IS 154/98. DENIES CHEST PAIN OR BLURRY VISION. WILL CONTINUE TO MONITOR AND REASSESS. NO OTHER COMPLAINTS AT THIS TIME. CALL LIGHT IN REACH.
[2019-07-27 06:31] LABS: BASO % 0.8 % (0.0-1.0); EOS # 0.3 10*3/uL (0.0-0.4); EOS % 6.1 % (1.0-4.0); HEMATOCRIT 34.3 % (37.0-47.0); HEMOGLOBIN 11.7 g/dl (12.0-16.0); LYMPH # 0.8 10*3/uL (1.3-4.4); LYMPH % 16.6 % (27.0-41.0); MEAN CORPUSCULAR HGB 30.7 pg (27.0-31.0); MEAN CORPUSCULAR HGB CONC 34.1 g/dl (33.0-37.0); MEAN PLATELET VOLUME 9.2 fl (9.6-12.3); MONO # 0.5 10*3/uL (0.1-1.0); MONO % 9.7 % (3.0-9.0); NEUT # 3.3 10*3/uL (2.3-7.9); NEUT % 66.4 % (47.0-73.0); PLATELET COUNT AUTOMATED 319 10*3/uL (130-400); RED BLOOD COUNT 3.81 10*6/uL (4.10-5.10); RED CELL DISTRI WIDTH 13.7 % (0-14.5)
[2019-07-27 06:44] LABS: ALBUMIN 2.6 gm/dl (3.1-4.5); ALKALINE PHOSPHATASE 174 U/L (45-117); BUN 10 mg/dl (7-24); CHLORIDE 103 mmol/L (98-107); CHOLESTEROL 159 mg/dL (<200); CREATININE 0.54 mg/dL (0.55-1.02); FREE T4 1.14 ng/dl (0.76-1.46); HDL CHOLESTEROL 22 mg/dl (40-60); LDL CHOLESTEROL 111 mg/dL (9-159); PHOSPHOROUS 2.6 mg/dL (2.5-4.9); POTASSIUM 3.1 mmol/L (3.5-5.1); SGOT/AST 42 IU/L (3-35); SGPT/ALT 49 U/L (12-78); SODIUM 134 mmol/L (136-145); TOTAL PROTEIN 7.1 gm/dL (6.4-8.2); TRIGLYCERIDES 129 mg/dl (<150); VLDL CHOLESTEROL 26 mg/dL (6-40)
--- NOTE | 2019-07-27 07:04 | NUR ---
DR DONATO NOTIFIED OF POTASSIUM 3.1. NO NEW ORDERS AT THIS TIME.
--- NOTE | 2019-07-27 07:33 | NUR ---
Shift chart check completed.
[2019-07-27 08:00] VITALS: BP 160/100
--- NOTE | 2019-07-27 08:25 | NUR ---
PT COMPLAIN OF HEADACHE, NORCO GIVEN. PT UNDERSTANDS AM MEDICTIONS. UNDERSTANDS POTASSIUM REPLACEMENT. NO QUESTIONS AT THIS TIME. WILL MONITOR FOR NORCO EFFECTIVENESS
[2019-07-27 08:28] LABS: VITAMIN D, 25-HYDROXY 11.9 ng/mL (30-100)
--- NOTE | 2019-07-27 09:07 | NUR ---
zofran effective for nausea, headache "better"
[2019-07-27 10:30] VITALS: BP 160/92
--- NOTE | 2019-07-27 11:34 | NUR ---
PT CONTINUES TO COMPLAIN OF HEADACHE, RIGHT SIDE OF FOREHEAD. NORCO GIVEN
--- NOTE | 2019-07-27 11:53 | NUR ---
Prehemmer in to talk to patient. Patient states lives at home with . There are few steps in the home. Physician: felipe jaramillo Pharmacy: [facility] health services: none Patient's level of ADLs: INDEPENDENT Patient has working utilities: all working DME: none Follow-up physician's appointment after d/c: will be made by hospitalist nurse director upon discharge Does patient want to access PORTAL?: no Discharge plan discussed with patient, present, she states she lives at home with , is independent in adls and ambulation, she states she will return home when able and denies any home needs, was in agreement. ANDRZEJ WILLIAM
--- NOTE | 2019-07-27 12:55 | NUR ---
Discharge instructions reviewed with patient/family. Patient receptive and verbalizes understanding. Follow-up care understood. Written instructions given to patient/family. iv removed left arm, dressing applied. pt declined wheelchair for dishcharge, with patient. pt has no questions on discharge instructions ERIKA CHAUDHRY
[2019-07-27] MEDS ORDERED: LISINOPRIL20 MG PO (16:00)
[2019-07-27] MEDS ORDERED: LOMOTIL 2.5-0.1 EACH PO (16:02)
== END 2019-07-27 12:55 | disposition home or self-care (01) | DRG 868 ==
LOC: ED 09:00 → 4E 10:32 → EDHOLD 10:32 → 4E 11:13
PROVIDERS: Emergency Medicine; Internal Medicine; ADMIT Internal Medicine
DX: A31.9 Mycobacterial infection, unspecified (principal); E44.0 Moderate protein-calorie malnutrition; E87.1 Hypo-osmolality and hyponatremia; E87.6 Hypokalemia; R00.0 Tachycardia, unspecified; F41.9 Anxiety disorder, unspecified; I10 Essential (primary) hypertension; K21.9 Gastro-esophageal reflux disease without esophagitis; Z85.3 Personal history of malignant neoplasm of breast; Z87.81 Personal history of (healed) traumatic fracture; Z88.1 Allergy status to other antibiotic agents; Z90.49 Acquired absence of other specified parts of digestive tract; Z83.6 Family history of other diseases of the respiratory system; Z79.899 Other long term (current) drug therapy; Z68.25 Body mass index [BMI] 25.0-25.9, adult

== ENCOUNTER → 2019-07-31 | Outpatient (CLI) | payer MEDICARE ==
[~2019-07-31] MED LIST changes: +CARVEDILOL3.125 MG PO; +CRESTOR5 MG PO; +ETHAMBUTOL HCL400 MG PO; +LISINOPRIL20 MG PO; +LOMOTIL 2.5-0.1 EACH PO; +NORVASC10 MG PO; +RIFADIN300 MG PO; +ZITHROMAX500 MG PO
[2019-07-31 10:22] LABS: BUN 15 mg/dl (7-24); CHLORIDE 97 mmol/L (98-107); POTASSIUM 3.8 mmol/L (3.5-5.1); SODIUM 131 mmol/L (136-145)
[2019-07-31 10:23] LABS: CREATININE 0.78 mg/dL (0.55-1.02)
== END | disposition home or self-care (01) ==
LOC: LAB 08:44
PROVIDERS: Internal Medicine
DX: E87.6 Hypokalemia (principal)

== ENCOUNTER → 2019-08-02 | Day surgery (SDC) | payer MEDICARE ==
[~2019-08-02] VITALS: Ht 167.6 cm; Wt 72.6 kg
--- NOTE | ~2019-08-02 | PROC NOTE ---
[place], [place] PROCEDURE NOTE NAME: KALA GONG UNIT #: [id number] ROOM: DOCTOR: JEAN BECKMAN MD BIRTHDATE: [birth year] DOS: 08/02/2019 PREOPERATIVE DIAGNOSIS: History of diverticulitis. POSTOPERATIVE DIAGNOSES: Diverticulosis, internal and external hemorrhoids. PROCEDURE: Flexible sigmoidoscopy. ENDOSCOPIST: Jean Beckman MD AUDIO VISUAL ARTS DIRECTOR: STUART. ANESTHESIA: MAC. INDICATIONS: This is a 74-year-old lady with a recent admission to the hospital with diverticulitis, who is here for a colonoscopy. The procedure and its complications were explained to the patient in detail preoperatively. Complications that were discussed included but were not limited to, bleeding, colon perforation, missed lesions, and prolonged pain. She agreed to proceed. DESCRIPTION OF PROCEDURE: After identifying the patient, the patient was brought to the endoscopy suite and placed in the left lateral position. After time-out procedure was called, IV sedation was administered by the anesthesia team. A digital rectal exam was performed, which was within normal limits and there was external hemorrhoids that could be visualized, but there was no blood on the examining finger. An adult colonoscope was now introduced into the anal canal and advanced sequentially into the rectum and sigmoid colon up to approximately 30 cm from the anal verge. Despite multiple attempts, the scope could not be passed beyond this point and this also was not possible after making the patient supine. There was diverticulosis that was seen and some edema in the mucosa and therefore in order to prevent any complications, the scope was withdrawn. During the process of withdrawal, internal hemorrhoids which were noncomplicated were also visualized in addition to the external hemorrhoids. The scope was withdrawn and the patient was brought back to the recovery room in stable fashion. The patient was then sent downstairs to Radiology for a completion barium enema. These findings were discussed with the patient's in the recovery room. [place], [place] PROCEDURE NOTE NAME: KALA GONG UNIT #: [id number] ROOM: DOCTOR: JEAN BECKMAN MD BIRTHDATE: [birth year] Jean Beckman MD CM:PROCNOTE:PROCEDURE NOTE 0836 1017 JEAN BECKMAN MD
[2019-08-02 07:23] VITALS: BP 155/98
[2019-08-02 08:13] VITALS: BP 133/91
[2019-08-02 08:28] VITALS: BP 152/88
[2019-08-02 08:43] VITALS: BP 130/88
== END | disposition home or self-care (01) ==
LOC: SDC 07-30 13:15
DX: Z12.11 Encounter for screening for malignant neoplasm of colon (principal); K57.30 Diverticulosis of large intestine without perforation or abscess without bleeding; K64.4 Residual hemorrhoidal skin tags; K64.8 Other hemorrhoids; I10 Essential (primary) hypertension; Z98.890 Other specified postprocedural states; Z88.8 Allergy status to other drugs, medicaments and biological substances; Z79.899 Other long term (current) drug therapy; Z79.84 Long term (current) use of oral hypoglycemic drugs; Z85.3 Personal history of malignant neoplasm of breast
CPT/HCPCS: 01922; G0104

== ENCOUNTER → 2019-08-09 | Outpatient (CLI) | payer MEDICARE ==
[2019-08-09 12:32] LABS: ALBUMIN 3.4 gm/dl (3.1-4.5); ALKALINE PHOSPHATASE 87 U/L (45-117); BILIRUBIN, DIRECT < 0.1 mg/dL (0.0-0.2); SGOT/AST 17 IU/L (3-35); SGPT/ALT 20 U/L (12-78); TOTAL PROTEIN 7.5 gm/dL (6.4-8.2)
[2019-08-09 12:36] LABS: BASO # 0.1 10*3/uL (0.0-0.1); BASO % 2.2 % (0.0-1.0); EOS # 0.2 10*3/uL (0.0-0.4); EOS % 4.6 % (1.0-4.0); HEMATOCRIT 36.1 % (37.0-47.0); HEMOGLOBIN 11.8 g/dl (12.0-16.0); LYMPH # 1.1 10*3/uL (1.3-4.4); LYMPH % 21.5 % (27.0-41.0); MEAN CORPUSCULAR HGB 31.1 pg (27.0-31.0); MEAN CORPUSCULAR HGB CONC 32.7 g/dl (33.0-37.0); MEAN PLATELET VOLUME 8.8 fl (9.6-12.3); MONO # 0.4 10*3/uL (0.1-1.0); MONO % 8.9 % (3.0-9.0); NEUT # 3.1 10*3/uL (2.3-7.9); NEUT % 62.4 % (47.0-73.0); PLATELET COUNT AUTOMATED 394 10*3/uL (130-400); RED CELL DISTRI WIDTH 14.6 % (0-14.5)
== END | disposition home or self-care (01) ==
LOC: LAB 11:40
PROVIDERS: Internal Medicine Critical Care Medicine
DX: Z79.899 Other long term (current) drug therapy (principal)

== ENCOUNTER → 2019-09-06 | Outpatient (CLI) | payer MEDICARE ==
[2019-09-06 12:31] LABS: BASO # 0.1 10*3/uL (0.0-0.1); BASO % 1.4 % (0.0-1.0); EOS # 0.3 10*3/uL (0.0-0.4); EOS % 6.3 % (1.0-4.0); HEMATOCRIT 37.7 % (37.0-47.0); HEMOGLOBIN 12.6 g/dl (12.0-16.0); LYMPH # 1.2 10*3/uL (1.3-4.4); LYMPH % 27.2 % (27.0-41.0); MEAN CELL VOLUME 95.4 fl (81.0-99.0); MEAN CORPUSCULAR HGB 31.9 pg (27.0-31.0); MEAN CORPUSCULAR HGB CONC 33.4 g/dl (33.0-37.0); MEAN PLATELET VOLUME 8.7 fl (9.6-12.3); MONO # 0.4 10*3/uL (0.1-1.0); MONO % 8.6 % (3.0-9.0); NEUT # 2.4 10*3/uL (2.3-7.9); PLATELET COUNT AUTOMATED 225 10*3/uL (130-400); RED BLOOD COUNT 3.95 10*6/uL (4.10-5.10); RED CELL DISTRI WIDTH 14.3 % (0-14.5); WHITE BLOOD COUNT 4.3 10*3/uL (4.8-10.8)
[2019-09-06 12:59] LABS: ALBUMIN 3.7 gm/dl (3.1-4.5); ALKALINE PHOSPHATASE 74 U/L (45-117); BILIRUBIN, DIRECT < 0.1 mg/dL (0.0-0.2); SGOT/AST 18 IU/L (3-35); SGPT/ALT 18 U/L (12-78); TOTAL PROTEIN 7.7 gm/dL (6.4-8.2)
== END | disposition home or self-care (01) ==
LOC: LAB 12:12
PROVIDERS: Internal Medicine Critical Care Medicine
DX: Z79.899 Other long term (current) drug therapy (principal)

== ENCOUNTER → 2019-10-04 | Outpatient (CLI) | payer MEDICARE ==
[2019-10-04 10:56] LABS: BASO # 0.1 10*3/uL (0.0-0.1); BASO % 1.4 % (0.0-1.0); EOS # 0.2 10*3/uL (0.0-0.4); EOS % 3.4 % (1.0-4.0); HEMATOCRIT 39.2 % (37.0-47.0); HEMOGLOBIN 12.9 g/dl (12.0-16.0); LYMPH # 1.6 10*3/uL (1.3-4.4); LYMPH % 31.1 % (27.0-41.0); MEAN CELL VOLUME 95.6 fl (81.0-99.0); MEAN CORPUSCULAR HGB 31.5 pg (27.0-31.0); MEAN CORPUSCULAR HGB CONC 32.9 g/dl (33.0-37.0); MEAN PLATELET VOLUME 8.6 fl (9.6-12.3); MONO # 0.5 10*3/uL (0.1-1.0); MONO % 9.6 % (3.0-9.0); NEUT # 2.7 10*3/uL (2.3-7.9); NEUT % 54.1 % (47.0-73.0); PLATELET COUNT AUTOMATED 229 10*3/uL (130-400); RED CELL DISTRI WIDTH 14.2 % (0-14.5)
[2019-10-04 11:27] LABS: ALBUMIN 3.9 gm/dl (3.1-4.5); ALKALINE PHOSPHATASE 72 U/L (45-117); BILIRUBIN, DIRECT < 0.1 mg/dL (0.0-0.2); SGOT/AST 13 IU/L (3-35); SGPT/ALT 17 U/L (12-78); TOTAL PROTEIN 7.5 gm/dL (6.4-8.2)
== END | disposition home or self-care (01) ==
LOC: LAB 10:42
PROVIDERS: Internal Medicine Critical Care Medicine
DX: Z79.899 Other long term (current) drug therapy (principal)

== ENCOUNTER → 2019-11-01 | Outpatient (CLI) | payer MEDICARE ==
[2019-11-01 16:03] LABS: BASO # 0.1 10*3/uL (0.0-0.1); BASO % 1.2 % (0.0-1.0); EOS # 0.2 10*3/uL (0.0-0.4); EOS % 3.8 % (1.0-4.0); HEMATOCRIT 41.7 % (37.0-47.0); HEMOGLOBIN 13.9 g/dl (12.0-16.0); LYMPH # 1.7 10*3/uL (1.3-4.4); LYMPH % 27.4 % (27.0-41.0); MEAN CELL VOLUME 94.1 fl (81.0-99.0); MEAN CORPUSCULAR HGB 31.4 pg (27.0-31.0); MEAN CORPUSCULAR HGB CONC 33.3 g/dl (33.0-37.0); MEAN PLATELET VOLUME 8.8 fl (9.6-12.3); MONO # 0.5 10*3/uL (0.1-1.0); MONO % 7.5 % (3.0-9.0); NEUT # 3.6 10*3/uL (2.3-7.9); NEUT % 59.8 % (47.0-73.0); PLATELET COUNT AUTOMATED 266 10*3/uL (130-400); RED BLOOD COUNT 4.43 10*6/uL (4.10-5.10); RED CELL DISTRI WIDTH 13.5 % (0-14.5)
[2019-11-01 16:15] LABS: ALBUMIN 4.1 gm/dl (3.1-4.5); ALKALINE PHOSPHATASE 80 U/L (45-117); BILIRUBIN, DIRECT < 0.1 mg/dL (0.0-0.2); SGOT/AST 16 IU/L (3-35); SGPT/ALT 17 U/L (12-78); TOTAL PROTEIN 8.2 gm/dL (6.4-8.2)
== END | disposition home or self-care (01) ==
LOC: LAB 15:18
PROVIDERS: Internal Medicine Critical Care Medicine
DX: Z51.81 Encounter for therapeutic drug level monitoring (principal); Z79.899 Other long term (current) drug therapy

== ENCOUNTER → 2019-11-29 | Outpatient (CLI) | payer MEDICARE ==
[2019-11-29 13:30] LABS: ALBUMIN 3.8 gm/dl (3.1-4.5); ALKALINE PHOSPHATASE 82 U/L (45-117); BILIRUBIN, DIRECT < 0.1 mg/dL (0.0-0.2); SGOT/AST 17 IU/L (3-35); SGPT/ALT 19 U/L (12-78); TOTAL PROTEIN 7.6 gm/dL (6.4-8.2)
[2019-11-29 13:39] LABS: BASO # 0.1 10*3/uL (0.0-0.1); BASO % 1.2 % (0.0-1.0); EOS # 0.3 10*3/uL (0.0-0.4); EOS % 6.6 % (1.0-4.0); HEMATOCRIT 39.7 % (37.0-47.0); HEMOGLOBIN 13.4 g/dl (12.0-16.0); LYMPH # 1.5 10*3/uL (1.3-4.4); LYMPH % 28.2 % (27.0-41.0); MEAN CELL VOLUME 94.3 fl (81.0-99.0); MEAN CORPUSCULAR HGB 31.8 pg (27.0-31.0); MEAN CORPUSCULAR HGB CONC 33.8 g/dl (33.0-37.0); MEAN PLATELET VOLUME 9.2 fl (9.6-12.3); MONO # 0.5 10*3/uL (0.1-1.0); MONO % 9.9 % (3.0-9.0); NEUT # 2.8 10*3/uL (2.3-7.9); NEUT % 53.9 % (47.0-73.0); PLATELET COUNT AUTOMATED 256 10*3/uL (130-400); RED BLOOD COUNT 4.21 10*6/uL (4.10-5.10); RED CELL DISTRI WIDTH 13.7 % (0-14.5); WHITE BLOOD COUNT 5.1 10*3/uL (4.8-10.8)
== END | disposition home or self-care (01) ==
LOC: LAB 12:37
PROVIDERS: Internal Medicine Critical Care Medicine
DX: Z79.899 Other long term (current) drug therapy (principal)

== ENCOUNTER → 2020-02-26 | Outpatient (CLI) | payer MEDICARE ==
[2020-02-26 16:36] LABS: BASO # 0.1 10*3/uL (0.0-0.1); BASO % 1.3 % (0.0-1.0); EOS # 0.3 10*3/uL (0.0-0.4); HEMATOCRIT 40.6 % (37.0-47.0); LYMPH # 1.6 10*3/uL (1.3-4.4); LYMPH % 29.5 % (27.0-41.0); MEAN CORPUSCULAR HGB 31.7 pg (27.0-31.0); MEAN PLATELET VOLUME 9.1 fl (9.6-12.3); MONO # 0.5 10*3/uL (0.1-1.0); MONO % 9.9 % (3.0-9.0); NEUT # 2.9 10*3/uL (2.3-7.9); NEUT % 53.9 % (47.0-73.0); PLATELET COUNT AUTOMATED 255 10*3/uL (130-400); RED BLOOD COUNT 4.23 10*6/uL (4.10-5.10); RED CELL DISTRI WIDTH 13.7 % (0-14.5); WHITE BLOOD COUNT 5.4 10*3/uL (4.8-10.8)
[2020-02-26 17:03] LABS: ALBUMIN 3.9 gm/dl (3.1-4.5); ALKALINE PHOSPHATASE 70 U/L (45-117); BILIRUBIN, DIRECT < 0.1 mg/dL (0.0-0.2); SGOT/AST 18 IU/L (3-35); SGPT/ALT 20 U/L (12-78); TOTAL PROTEIN 7.7 gm/dL (6.4-8.2)
== END | disposition home or self-care (01) ==
LOC: LAB 15:25
PROVIDERS: Internal Medicine Critical Care Medicine
DX: Z79.899 Other long term (current) drug therapy (principal)

== ENCOUNTER → 2020-03-25 | Outpatient (CLI) | payer MEDICARE ==
[2020-03-25 13:57] LABS: BASO # 0.1 10*3/uL (0.0-0.1); BASO % 1.6 % (0.0-1.0); EOS # 0.3 10*3/uL (0.0-0.4); EOS % 7.7 % (1.0-4.0); HEMATOCRIT 39.2 % (37.0-47.0); LYMPH # 1.2 10*3/uL (1.3-4.4); LYMPH % 28.4 % (27.0-41.0); MEAN CELL VOLUME 94.7 fl (81.0-99.0); MEAN CORPUSCULAR HGB 31.4 pg (27.0-31.0); MEAN CORPUSCULAR HGB CONC 33.2 g/dl (33.0-37.0); MEAN PLATELET VOLUME 8.6 fl (9.6-12.3); MONO # 0.4 10*3/uL (0.1-1.0); MONO % 8.4 % (3.0-9.0); NEUT # 2.3 10*3/uL (2.3-7.9); NEUT % 53.4 % (47.0-73.0); PLATELET COUNT AUTOMATED 250 10*3/uL (130-400); RED BLOOD COUNT 4.14 10*6/uL (4.10-5.10); RED CELL DISTRI WIDTH 13.8 % (0-14.5); WHITE BLOOD COUNT 4.3 10*3/uL (4.8-10.8)
[2020-03-25 14:24] LABS: ALKALINE PHOSPHATASE 74 U/L (45-117); BILIRUBIN, DIRECT < 0.1 mg/dL (0.0-0.2); SGOT/AST 18 IU/L (3-35); SGPT/ALT 18 U/L (12-78); TOTAL PROTEIN 7.8 gm/dL (6.4-8.2)
== END | disposition home or self-care (01) ==
LOC: LAB 13:27
PROVIDERS: Internal Medicine Critical Care Medicine
DX: Z79.899 Other long term (current) drug therapy (principal)

== ENCOUNTER → 2020-06-17 | Outpatient (CLI) | payer MEDICARE | END | disposition home or self-care (01) | LOC: RAD 15:05 → LAB 15:05 | PROVIDERS: ATTEND Nurse Practitioner Family | DX: M19.072 Primary osteoarthritis, left ankle and foot (principal); R60.0 Localized edema; L03.119 Cellulitis of unspecified part of limb; L02.619 Cutaneous abscess of unspecified foot; B02.9 Zoster without complications ==

== ENCOUNTER → 2020-08-20 | Outpatient (CLI) | payer MEDICARE | END | disposition home or self-care (01) | LOC: COVID19 15:23 | PROVIDERS: ATTEND Nurse Practitioner Family | DX: Z20.828 Contact with and (suspected) exposure to other viral communicable diseases (principal) ==

== ENCOUNTER → 2021-03-19 | Outpatient (CLI) | payer MEDICARE | END | disposition home or self-care (01) | LOC: CARD 14:51 | PROVIDERS: ATTEND Internal Medicine Cardiovascular Disease | DX: I08.0 Rheumatic disorders of both mitral and aortic valves (principal) ==

== ENCOUNTER → 2021-04-13 | Outpatient (CLI) | payer MEDICARE | END | disposition home or self-care (01) | LOC: US 13:17 | PROVIDERS: ATTEND Nurse Practitioner Family | DX: I70.203 Unspecified atherosclerosis of native arteries of extremities, bilateral legs (principal) ==

== ENCOUNTER → 2021-06-18 | Outpatient (CLI) | payer MEDICARE | END | disposition home or self-care (01) | LOC: CT 09:37 | PROVIDERS: ATTEND Internal Medicine Medical Oncology | DX: J43.9 Emphysema, unspecified (principal); C50.911 Malignant neoplasm of unspecified site of right female breast; Z17.1 Estrogen receptor negative status [ER-]; R06.02 Shortness of breath ==

== ENCOUNTER 2022-04-07 13:08 | Emergency (ER) | payer MEDICARE ==
[~2022-04-07] VITALS: Wt 72.6 kg
[2022-04-07] MEDS ORDERED: CEPHALEXIN500 M1 PO (15:13)
== END 2022-04-07 15:08 | disposition home or self-care (01) ==
LOC: ED 13:08
DX: L03.115 Cellulitis of right lower limb (principal); Z88.1 Allergy status to other antibiotic agents; Z79.899 Other long term (current) drug therapy; Z90.49 Acquired absence of other specified parts of digestive tract; Z98.890 Other specified postprocedural states; Z87.891 Personal history of nicotine dependence

== ENCOUNTER → 2022-05-26 | Outpatient (CLI) | payer MEDICARE ==
[~2022-05-26] MED LIST changes: +CEPHALEXIN500 M1 PO
[2022-05-26 09:28] LABS: BASO # 0.1 10*3/uL (0.0-0.1); BASO % 1.6 % (0.0-1.0); EOS # 0.4 10*3/uL (0.0-0.4); EOS % 6.3 % (1.0-4.0); HEMATOCRIT 36.4 % (37.0-47.0); LYMPH # 1.3 10*3/uL (1.3-4.4); LYMPH % 22.2 % (27.0-41.0); MEAN CELL VOLUME 97.1 fl (81.0-99.0); MEAN CORPUSCULAR HGB 32.5 pg (27.0-31.0); MEAN CORPUSCULAR HGB CONC 33.5 g/dl (33.0-37.0); MEAN PLATELET VOLUME 8.5 fl (9.6-12.3); MONO # 0.5 10*3/uL (0.1-1.0); MONO % 8.9 % (3.0-9.0); NEUT # 3.5 10*3/uL (2.3-7.9); NEUT % 60.3 % (47.0-73.0); PLATELET COUNT AUTOMATED 312 10*3/uL (130-400); RED BLOOD COUNT 3.75 10*6/uL (4.10-5.10); RED CELL DISTRI WIDTH 13.2 % (0-14.5); WHITE BLOOD COUNT 5.7 10*3/uL (4.8-10.8)
[2022-05-26 09:50] LABS: ALKALINE PHOSPHATASE 68 U/L (45-117); BUN 25 mg/dl (7-24); CHLORIDE 104 mmol/L (98-107); CREATININE 1.01 mg/dL (0.55-1.02); LIPASE 121 U/L (73-393); POTASSIUM 3.9 mmol/L (3.5-5.1); SGOT/AST 24 IU/L (3-35); SGPT/ALT 31 U/L (12-78); SODIUM 139 mmol/L (136-145); TOTAL PROTEIN 7.2 gm/dL (6.4-8.2)
== END | disposition home or self-care (01) ==
LOC: LAB 08:59
PROVIDERS: Nurse Practitioner Family; ATTEND Internal Medicine
DX: L03.115 Cellulitis of right lower limb (principal); K59.00 Constipation, unspecified; R10.9 Unspecified abdominal pain; W19.XXXA Unspecified fall, initial encounter; Y93.89 Activity, other specified; Y92.89 Other specified places as the place of occurrence of the external cause; Y99.8 Other external cause status; I10 Essential (primary) hypertension

== ENCOUNTER → 2022-12-01 | Outpatient (CLI) | payer MEDICARE ==
[~2022-12-01] MED LIST changes: +CARVEDILOL12.5 MG PO; +CARVEDILOL6.25 MG PO; +COREG6.25 MG PO; +ELIQUIS5 M1 PO; +ENOXAPARIN100 MG/1 M SC; +ESCITALOPRAM OX10 MG PO; +LEVOFLOXACIN750 M2 PO; +MUCINEX DM 30/61 TAB PO; +OMNICEF300 MG PO
[2022-12-01 07:51] LABS: BASO # 0.1 10*3/uL (0.0-0.1); BASO % 1.1 % (0.0-1.0); EOS # 0.2 10*3/uL (0.0-0.4); EOS % 2.6 % (1.0-4.0); HEMATOCRIT 34.5 % (37.0-47.0); LYMPH # 1.3 10*3/uL (1.3-4.4); LYMPH % 20.7 % (27.0-41.0); MEAN CELL VOLUME 91.8 fl (81.0-99.0); MEAN CORPUSCULAR HGB 29.5 pg (27.0-31.0); MEAN CORPUSCULAR HGB CONC 32.2 g/dl (33.0-37.0); MEAN PLATELET VOLUME 8.6 fl (9.6-12.3); MONO # 0.4 10*3/uL (0.1-1.0); MONO % 6.3 % (3.0-9.0); NEUT # 4.5 10*3/uL (2.3-7.9); NEUT % 68.8 % (47.0-73.0); PLATELET COUNT AUTOMATED 478 10*3/uL (130-400); RED BLOOD COUNT 3.76 10*6/uL (4.10-5.10); RED CELL DISTRI WIDTH 16.8 % (0-14.5); WHITE BLOOD COUNT 6.5 10*3/uL (4.8-10.8)
[2022-12-01 08:16] LABS: ALKALINE PHOSPHATASE 69 U/L (46-116); BUN 15 mg/dl (9-23); CHLORIDE 106 mmol/L (98-107); CHOLESTEROL 159 mg/dL (<200); LDL CHOLESTEROL 95 mg/dL (9-159); POTASSIUM 4.1 mmol/L (3.4-5.1); SGPT/ALT 11 U/L (10-49); TOTAL PROTEIN 7.1 gm/dL (6.0-8.0); TRIGLYCERIDES 166 mg/dl (<150)
== END | disposition home or self-care (01) ==
LOC: LAB 07:27
PROVIDERS: ATTEND Nurse Practitioner Family
DX: K57.92 Diverticulitis of intestine, part unspecified, without perforation or abscess without bleeding (principal); I10 Essential (primary) hypertension; E78.5 Hyperlipidemia, unspecified

== ENCOUNTER 2022-12-31 10:08 | Emergency (ER) | payer MEDICARE ==
[~2022-12-31] VITALS: Ht 167.6 cm; Wt 63.5 kg
[2022-12-31 11:06] LABS: BASO # 0.1 10*3/uL (0.0-0.1); BASO % 1.1 % (0.0-1.0); EOS # 0.1 10*3/uL (0.0-0.4); EOS % 2.2 % (1.0-4.0); HEMATOCRIT 32.6 % (37.0-47.0); LYMPH # 1.4 10*3/uL (1.3-4.4); LYMPH % 22.7 % (27.0-41.0); MEAN CELL VOLUME 90.8 fl (81.0-99.0); MEAN CORPUSCULAR HGB 30.1 pg (27.0-31.0); MEAN CORPUSCULAR HGB CONC 33.1 g/dl (33.0-37.0); MEAN PLATELET VOLUME 9.1 fl (9.6-12.3); MONO # 0.4 10*3/uL (0.1-1.0); MONO % 5.6 % (3.0-9.0); NEUT # 4.3 10*3/uL (2.3-7.9); NEUT % 68.2 % (47.0-73.0); PLATELET COUNT AUTOMATED 304 10*3/uL (130-400); RED BLOOD COUNT 3.59 10*6/uL (4.10-5.10); RED CELL DISTRI WIDTH 17.3 % (0-14.5); WHITE BLOOD COUNT 6.3 10*3/uL (4.8-10.8)
[2022-12-31 11:23] LABS: ACT PARTIAL THROMBO TIME 27.8 SECONDS (20.0-32.1); INTERNATIONAL NORM RATIO 1.2 (2.0-3.5); LIPASE 30 U/L (12-53)
[2022-12-31 11:26] LABS: ALKALINE PHOSPHATASE 78 U/L (46-116); BUN 14 mg/dl (9-23); CHLORIDE 108 mmol/L (98-107); POTASSIUM 3.7 mmol/L (3.4-5.1)
[2022-12-31 11:27] LABS: SGPT/ALT < 7 U/L (10-49)
== END 2022-12-31 13:20 | disposition home or self-care (01) ==
LOC: ED 10:08
PROVIDERS: Emergency Medicine
DX: R07.9 Chest pain, unspecified (principal); Z88.1 Allergy status to other antibiotic agents; Z90.49 Acquired absence of other specified parts of digestive tract; Z98.890 Other specified postprocedural states; Z87.891 Personal history of nicotine dependence

== ENCOUNTER → 2023-01-18 | Outpatient (CLI) | payer MEDICARE | LOC: CARD 00:26 | PROVIDERS: ATTEND Internal Medicine Cardiovascular Disease | DX: R93.1 Abnormal findings on diagnostic imaging of heart and coronary circulation (principal) ==

== ENCOUNTER → 2023-02-17 | Outpatient (CLI) | payer MEDICARE ==
[2023-02-17 14:12] LABS: BASO # 0.1 10*3/uL (0.0-0.1); BASO % 0.7 % (0.0-1.0); EOS # 0.1 10*3/uL (0.0-0.4); HEMATOCRIT 30.7 % (37.0-47.0); LYMPH # 1.8 10*3/uL (1.3-4.4); LYMPH % 23.8 % (27.0-41.0); MEAN CORPUSCULAR HGB 30.3 pg (27.0-31.0); MEAN CORPUSCULAR HGB CONC 32.6 g/dl (33.0-37.0); MEAN PLATELET VOLUME 8.7 fl (9.6-12.3); MONO # 0.4 10*3/uL (0.1-1.0); MONO % 5.5 % (3.0-9.0); NEUT # 5.3 10*3/uL (2.3-7.9); NEUT % 68.5 % (47.0-73.0); PLATELET COUNT AUTOMATED 531 10*3/uL (130-400); RED CELL DISTRI WIDTH 15.7 % (0-14.5); WHITE BLOOD COUNT 7.7 10*3/uL (4.8-10.8)
[2023-02-17 14:46] LABS: ALKALINE PHOSPHATASE 69 U/L (46-116); BUN 11 mg/dl (9-23); CHLORIDE 104 mmol/L (98-107); POTASSIUM 3.5 mmol/L (3.4-5.1); SGPT/ALT 8 U/L (10-49); TOTAL PROTEIN 7.4 gm/dL (6.0-8.0)
== END | disposition home or self-care (01) ==
LOC: LAB 13:31
PROVIDERS: ATTEND Nurse Practitioner Family
DX: Z01.812 Encounter for preprocedural laboratory examination (principal); K46.9 Unspecified abdominal hernia without obstruction or gangrene; I10 Essential (primary) hypertension; C50.919 Malignant neoplasm of unspecified site of unspecified female breast; Z79.01 Long term (current) use of anticoagulants

== ENCOUNTER → 2023-05-25 | Outpatient (CLI) | payer MEDICARE ==
[2023-05-25 09:10] LABS: BASO # 0.1 10*3/uL (0.0-0.1); BASO % 1.4 % (0.0-1.0); EOS # 0.2 10*3/uL (0.0-0.4); EOS % 3.5 % (1.0-4.0); HEMATOCRIT 31.9 % (37.0-47.0); LYMPH # 1.6 10*3/uL (1.3-4.4); LYMPH % 28.9 % (27.0-41.0); MEAN CELL VOLUME 94.4 fl (81.0-99.0); MEAN CORPUSCULAR HGB 30.8 pg (27.0-31.0); MEAN CORPUSCULAR HGB CONC 32.6 g/dl (33.0-37.0); MEAN PLATELET VOLUME 8.7 fl (9.6-12.3); MONO # 0.3 10*3/uL (0.1-1.0); NEUT # 3.4 10*3/uL (2.3-7.9); NEUT % 59.8 % (47.0-73.0); PLATELET COUNT AUTOMATED 327 10*3/uL (130-400); RED BLOOD COUNT 3.38 10*6/uL (4.10-5.10); RED CELL DISTRI WIDTH 15.3 % (0-14.5); WHITE BLOOD COUNT 5.7 10*3/uL (4.8-10.8)
[2023-05-25 09:35] LABS: ALKALINE PHOSPHATASE 67 U/L (46-116); BUN 13 mg/dl (9-23); CHLORIDE 110 mmol/L (98-107); CHOLESTEROL 143 mg/dL (<200); LDL CHOLESTEROL 70 mg/dL (9-159); POTASSIUM 4.4 mmol/L (3.4-5.1); SGPT/ALT 9 U/L (10-49); TOTAL PROTEIN 7.3 gm/dL (6.0-8.0); TRIGLYCERIDES 175 mg/dl (<150)
== END | disposition home or self-care (01) ==
LOC: LAB 08:09
PROVIDERS: ATTEND Nurse Practitioner Family
DX: I10 Essential (primary) hypertension (principal); E78.5 Hyperlipidemia, unspecified; D64.9 Anemia, unspecified; K57.92 Diverticulitis of intestine, part unspecified, without perforation or abscess without bleeding

== ENCOUNTER → 2023-10-18 | Outpatient (CLI) | payer MEDICARE | END | disposition home or self-care (01) | LOC: CT 00:50 | PROVIDERS: ATTEND Internal Medicine Critical Care Medicine | DX: J44.9 Chronic obstructive pulmonary disease, unspecified (principal); R91.8 Other nonspecific abnormal finding of lung field; M47.814 Spondylosis without myelopathy or radiculopathy, thoracic region; M41.84 Other forms of scoliosis, thoracic region; I70.0 Atherosclerosis of aorta; N28.1 Cyst of kidney, acquired; Z87.891 Personal history of nicotine dependence; I25.10 Atherosclerotic heart disease of native coronary artery without angina pectoris; Z85.3 Personal history of malignant neoplasm of breast ==

== ENCOUNTER → 2024-02-01 | Outpatient (CLI) | payer MEDICARE | END | disposition home or self-care (01) | LOC: CT 10:42 | PROVIDERS: ATTEND Internal Medicine Critical Care Medicine | DX: J98.11 Atelectasis (principal); K76.89 Other specified diseases of liver; I72.8 Aneurysm of other specified arteries; R91.1 Solitary pulmonary nodule ==

== ENCOUNTER → 2024-02-23 | Outpatient (CLI) | payer MEDICARE ==
[2024-02-23 08:03] LABS: BASO # 0.1 10*3/uL (0.0-0.1); EOS # 0.3 10*3/uL (0.0-0.4); EOS % 2.9 % (1.0-4.0); HEMATOCRIT 31.4 % (37.0-47.0); LYMPH # 1.9 10*3/uL (1.3-4.4); LYMPH % 20.9 % (27.0-41.0); MEAN CELL VOLUME 84.9 fl (81.0-99.0); MEAN CORPUSCULAR HGB 25.9 pg (27.0-31.0); MEAN CORPUSCULAR HGB CONC 30.6 g/dl (33.0-37.0); MEAN PLATELET VOLUME 8.5 fl (9.6-12.3); MONO # 0.5 10*3/uL (0.1-1.0); MONO % 5.8 % (3.0-9.0); NEUT # 6.3 10*3/uL (2.3-7.9); NEUT % 69.1 % (47.0-73.0); PLATELET COUNT AUTOMATED 364 10*3/uL (130-400); RED CELL DISTRI WIDTH 18.1 % (0-14.5); WHITE BLOOD COUNT 9.1 10*3/uL (4.8-10.8)
[2024-02-23 08:34] LABS: ALKALINE PHOSPHATASE 105 U/L (46-116); BUN 12 mg/dl (9-23); CHLORIDE 106 mmol/L (98-107); CHOLESTEROL 134 mg/dL (<200); LDL CHOLESTEROL 61 mg/dL (9-159); POTASSIUM 4.1 mmol/L (3.4-5.1); SGPT/ALT 9 U/L (5-49); TOTAL PROTEIN 7.3 gm/dL (6.0-8.0); TRIGLYCERIDES 164 mg/dl (<150)
== END | disposition home or self-care (01) ==
LOC: LAB 07:38
PROVIDERS: ATTEND Nurse Practitioner Family
DX: I10 Essential (primary) hypertension (principal); E78.5 Hyperlipidemia, unspecified; F41.9 Anxiety disorder, unspecified; Z85.3 Personal history of malignant neoplasm of breast

== ENCOUNTER 2024-05-12 07:48 | Emergency (ER) | payer MEDICARE ==
[~2024-05-12] VITALS: Ht 157.4 cm; Wt 63.5 kg
[2024-05-12 08:39] LABS: BASO # 0.1 10*3/uL (0.0-0.1); BASO % 0.9 % (0.0-1.0); EOS # 0.1 10*3/uL (0.0-0.4); EOS % 1.4 % (1.0-4.0); HEMATOCRIT 30.8 % (37.0-47.0); LYMPH # 1.1 10*3/uL (1.3-4.4); LYMPH % 18.4 % (27.0-41.0); MEAN CELL VOLUME 85.6 fl (81.0-99.0); MEAN CORPUSCULAR HGB 26.1 pg (27.0-31.0); MEAN CORPUSCULAR HGB CONC 30.5 g/dl (33.0-37.0); MEAN PLATELET VOLUME 8.3 fl (9.6-12.3); MONO # 0.3 10*3/uL (0.1-1.0); MONO % 5.6 % (3.0-9.0); NEUT # 4.3 10*3/uL (2.3-7.9); NEUT % 73.5 % (47.0-73.0); PLATELET COUNT AUTOMATED 348 10*3/uL (130-400); RED CELL DISTRI WIDTH 17.2 % (0-14.5); WHITE BLOOD COUNT 5.9 10*3/uL (4.8-10.8)
[2024-05-12 09:00] LABS: BUN 10 mg/dl (9-23); CHLORIDE 107 mmol/L (98-107); POTASSIUM 3.7 mmol/L (3.4-5.1)
[2024-05-12 09:09] LABS: ACT PARTIAL THROMBO TIME 27.6 SECONDS (20.0-32.1)
== END 2024-05-12 11:15 | disposition home or self-care (01) ==
LOC: ED 07:48
PROVIDERS: Internal Medicine
DX: I16.0 Hypertensive urgency (principal); I48.91 Unspecified atrial fibrillation; J44.9 Chronic obstructive pulmonary disease, unspecified; Z88.1 Allergy status to other antibiotic agents; Z90.49 Acquired absence of other specified parts of digestive tract; Z90.11 Acquired absence of right breast and nipple; Z98.890 Other specified postprocedural states; Z87.891 Personal history of nicotine dependence

== ENCOUNTER → 2025-03-11 | Outpatient (CLI) | payer MEDICARE ==
[~2025-03-11] MED LIST changes: +PYRIDIUM200 M1 PO
== END | disposition home or self-care (01) ==
LOC: LAB 16:36
PROVIDERS: ATTEND Nurse Practitioner Family
DX: R30.0 Dysuria (principal)

== ENCOUNTER → 2025-04-11 | Outpatient (CLI) | payer MEDICARE | END | disposition home or self-care (01) | LOC: LAB 14:30 | PROVIDERS: ATTEND Nurse Practitioner Family | DX: N39.0 Urinary tract infection, site not specified (principal) ==

== ENCOUNTER → 2025-05-21 | Outpatient (CLI) | payer MEDICARE ==
[2025-05-21 11:33] LABS: BASO # 0.1 10*3/uL (0.0-0.1); BASO % 1.1 % (0.0-1.0); EOS # 0.2 10*3/uL (0.0-0.4); EOS % 3.9 % (1.0-4.0); MEAN CELL VOLUME 97.9 fl (81.0-99.0); MEAN CORPUSCULAR HGB 31.0 pg (27.0-31.0); MEAN PLATELET VOLUME 8.4 fl (9.6-12.3); MONO # 0.5 10*3/uL (0.1-1.0); MONO % 7.9 % (3.0-9.0); NEUT # 3.1 10*3/uL (2.3-7.9); NEUT % 54.0 % (47.0-73.0); NUCLEATED RED BLOOD CELL 0.0 % (0.0-0.0); NUCLEATED RED BLOOD CELL 0.0 10*3/uL (0.0-0.0); PLATELET COUNT AUTOMATED 256 10*3/uL (130-400); RED CELL DISTRI WIDTH 15.5 % (0-14.5)
[2025-05-21 11:38] LABS: BILIRUBIN Negative (Negative); BLOOD Negative (Negative); CLARITY Clear (Clear); COLOR Yellow (Yellow); KETONE Negative (Negative); LEUKO ESTERASE Trace (Negative); NITRITE Negative (Negative); PH 5.5 (4.5-8.0); SPECIFIC GRAVITY 1.015 (1.001-1.030); UROBILINOGEN 0.2 E.U./dl (0.0-1.0)
[2025-05-21 12:00] LABS: BUN 25 mg/dl (9-23); SGPT/ALT 10 U/L (5-49)
[2025-05-21 12:31] LABS: BACTERIA TRACE
== END | disposition home or self-care (01) ==
LOC: LAB 11:08 → CT 11:08
PROVIDERS: ATTEND Nurse Practitioner
DX: N39.0 Urinary tract infection, site not specified (principal); R31.9 Hematuria, unspecified

== ENCOUNTER → 2025-05-23 | Outpatient (CLI) | payer MEDICARE ==
[~2025-05-23] MED LIST changes: +IOHEXOL 350 MG/ML 100 ML VIAL IV ONE
== END | disposition home or self-care (01) ==
LOC: CT 00:50
PROVIDERS: ATTEND Nurse Practitioner
DX: N28.1 Cyst of kidney, acquired (principal); R31.9 Hematuria, unspecified; K76.89 Other specified diseases of liver; I72.8 Aneurysm of other specified arteries; M43.8X6 Other specified deforming dorsopathies, lumbar region; Z96.642 Presence of left artificial hip joint

== ENCOUNTER → 2025-08-21 | Outpatient (CLI) | payer MEDICARE ==
[~2025-08-21] MED LIST changes: -IOHEXOL 350 MG/ML 100 ML VIAL IV ONE
[2025-08-21 17:53] LABS: BASO # 0.1 10*3/uL (0.0-0.1); BASO % 1.0 % (0.0-1.0); EOS # 0.3 10*3/uL (0.0-0.4); EOS % 3.9 % (1.0-4.0); MEAN CELL VOLUME 101.2 fl (81.0-99.0); MEAN CORPUSCULAR HGB 32.0 pg (27.0-31.0); MEAN PLATELET VOLUME 9.1 fl (9.6-12.3); MONO # 0.5 10*3/uL (0.1-1.0); MONO % 7.0 % (3.0-9.0); NEUT # 4.9 10*3/uL (2.3-7.9); NEUT % 62.7 % (47.0-73.0); NUCLEATED RED BLOOD CELL 0.0 % (0.0-0.0); NUCLEATED RED BLOOD CELL 0.0 10*3/uL (0.0-0.0); PLATELET COUNT AUTOMATED 326 10*3/uL (130-400); RED CELL DISTRI WIDTH 14.5 % (0-14.5)
== END | disposition home or self-care (01) ==
LOC: LAB 12:13 → ZWMC 12:13
PROVIDERS: ATTEND Nurse Practitioner Family
DX: I10 Essential (primary) hypertension (principal); E61.1 Iron deficiency; I48.91 Unspecified atrial fibrillation; K21.9 Gastro-esophageal reflux disease without esophagitis; D64.9 Anemia, unspecified